=== PATIENT | female | born 1960 | race Two or more races ===

== ENCOUNTER 2020-04-13 13:56 | Emergency (ER) | payer MEDICARE ==
[2020-04-13] MEDS ORDERED: DIPH/PERTUSS(ACELL)/TETANUS VAC/PF 0.5 ML SYR (>=10YO) IM ONE (16:48)
--- NOTE | 2020-04-13 16:58 | ER Document Report ---
ED Medical Screen (RME) - General Chief Complaint: Laceration Stated Complaint: LEG PAIN Notes: 60-year-old female with past medical history of hypertension and myasthenia gravis presenting today with laceration to the anterior right brown. States she was walking down the last 3 steps at her daughter's house when she fell and the wooden steps cut her anterior brown. Patient states that her pain is tolerable right now. Does not desire additional pain medications. She states she takes methadone for her chronic low back pain. Shee believes that her last tetanus shot was approximately 6 years ago. Laceration is approximately 6 cm in diameter, is elliptical and does not approximate well. Patient has very thin frail skin. Does not take blood thinners. PE: Approximately 6 cm laceration along anterior right lower brown with underlying tissue exposed. Does not approximate well. Good capillary refill and good dorsalis pedis pulse. Good sensation to light touch. I have greeted and performed a rapid initial assessment of this patient. A comprehesive ED assessment and evaluation of this patient, analysis of test results and completion of the medical decision-making process will be conducted by additional ED providers. - Related Data Allergies/Adverse Reactions: Penicillins Allergy (Verified 04/13/20 16:18) Home Medications: Methadone, Sertraline Physical Exam - Vital signs Vitals: Temp Pulse Resp BP Pulse Ox 98.7 F 72 16 126/82 H 100 04/13/20 14:52 04/13/20 14:52 04/13/20 14:52 04/13/20 14:52 04/13/20 14:52 Course - Vital Signs Vital signs: Temp Pulse Resp BP Pulse Ox 98.7 F 72 16 126/82 H 100 04/13/20 14:52 04/13/20 14:52 04/13/20 14:52 04/13/20 14:52 04/13/20 14:52
--- NOTE | 2020-04-13 17:20 | RADIOLOGY REPORT (SQ) ---
EXAM DESCRIPTION: TIBIA FIBULA RIGHT IMAGES COMPLETED DATE/TIME: 04/13/2020 5:08 pm REASON FOR STUDY: laceration to anterior brown COMPARISON: None. NUMBER OF VIEWS: Two views. TECHNIQUE: Two radiographic images acquired of the right tibia and fibula to include the knee and an kle in at least one projection. LIMITATIONS: None. FINDINGS: MINERALIZATION: Normal. BONES: No acute fracture or dislocation. No worrisome bone lesions. No significant osteophytes. SOFT TISSUES: No obvious swelling or foreign body. OTHER: External bandaging is present over the lower right leg. IMPRESSION: No acute fracture or radiopaque foreign body. TECHNICAL DOCUMENTATION: JOB ID: [id number] 2010 [employer]- All Rights Reserved Reading location - IP/workstation name: [email or web address]
[2020-04-13] MEDS ORDERED: LIDOCAINE 1% INJ-PF (10 MG/ML) 30 ML SDV INJ ONE (18:35)
--- NOTE | 2020-04-13 20:00 | ER Document Report ---
ED Wound - General Chief Complaint: Laceration Stated Complaint: LEG PAIN Time Seen by Provider: 04/13/20 17:49 Notes: Patient is a 60-year-old female who presents emergency department with a laceration to her right anterior lower leg. Patient states that she was walking down steps at her daughter's house and she cut her brown on wooden steps. Patient has a history of chronic back pain, myasthenia gravis, and hypertension. Patient received her tetanus vaccine in triage. Patient denies any blood thinner use. She denies any diabetes. - Related Data Allergies/Adverse Reactions: Penicillins Allergy (Verified 04/13/20 16:18) Home Medications: Methadone, Sertraline Past Medical History - General Information source: Patient - Social History Smoking Status: Unknown if Ever Smoked Family History: Reviewed & Not Pertinent Review of Systems - Review of Systems Notes: REVIEW OF SYSTEMS: CONSTITUTIONAL : Denies recent illness. Denies recent unintentional weight loss. Denies fever, chills, or sweats. EENT: Denies eye, ear, throat, or mouth pain, discharge, or symptoms. Denies nasal or sinus congestion. CARDIOVASCULAR: Denies chest pain. RESPIRATORY: Denies shortness of breath, cough, congestion, difficulty breathing, or wheezing. GASTROINTESTINAL: Denies nausea, vomiting, and diarrhea. Denies abdominal pain. Denies constipation. GENITOURINARY: Denies difficulty urinating, burning, blood in urine, urgency or frequency. MUSCULOSKELETAL: Denies neck and back pain. See HPI. SKIN: See HPI. HEMATOLOGIC : Denies easy bruising or bleeding. LYMPHATIC: Denies swollen, painful, enlarged glands. NEUROLOGICAL: Denies no numbness or tingling denies weakness. Denies headache. Denies altered mental status. Denies alteration in speech. PSYCHIATRIC: Denies stress, anxiety, alteration in sleep patterns, or depression. All other systems reviewed and negative. Physical Exam - Vital signs Vitals: Temp Pulse Resp BP Pulse Ox 98.7 F 72 16 126/82 H 100 04/13/20 14:52 04/13/20 14:52 04/13/20 14:52 04/13/20 14:52 04/13/20 14:52 - Notes Notes: PHYSICAL EXAMINATION: GENERAL: Appears well, healthy, well-nourished, no acute distress. HEAD: Normocephalic, atraumatic. EYES: PERRL, conjunctiva normal, all extraocular movements intact, sclera nonicteric ENT: Moist mucous membranes. NECK: Supple, no noticeable swelling, redness, rash. Normal range of motion. LUNGS: Equal breath sounds bilaterally and clear to auscultation. No wheezes rales or rhonchi. CARDIOVASCULAR: S1-S2, regular rate, regular rhythm. Radial pulses 2+, normal. ABDOMEN: Normoactive bowel sounds. Soft, nontender, no guarding, no rebound tenderness, and no masses palpated. EXTREMITIES: Normal strength and range of motion, no pitting or edema. No cyanosis. NEUROLOGICAL: Moves all extremities upon command. Strength 5/5 in all extremities. PSYCH: Normal mood, normal affect. SKIN: Warm, dry. Laceration noted to right anterior brown. About 10 cm in length Course - Re-evaluation Re-evalutation: 04/13/20 Patient laceration was repaired here in the emergency department. I explored the wound and did not find any fragments of wood in her leg. X-ray was unremarkable. No bone involvement. See procedure note. Patient tolerated suturing well. No tendon involvement noted. Patient is able to flex and extend right foot at her normal capacity. Follow-up precautions were given. Verbal discharge instructions were given to the patient. They verbalized understanding. They are stable for discharge. - Vital Signs Vital signs: Temp Pulse Resp BP Pulse Ox 98.6 F 64 16 136/54 H 92 04/13/20 20:06 04/13/20 20:06 04/13/20 20:06 04/13/20 20:06 04/13/20 20:06 Procedures - Laceration/Wound Repair Right Anterior Leg Wound length (cm): 10 Wound's Depth, Shape: Flap Laceration pre-procedure: Sterile PPE donned, Sterile drapes applied, Shur-Clens applied Anesthetic type: 1% Lidocaine Volume Anesthetic (mLs): 30 Wound explored: Clean, No foreign body removed Irrigated w/ Saline (mLs): 200 Wound Debrided: Minimal Wound Repaired With: Sutures Suture Size/Type: 4:0, Nylon Number of Sutures: 21 Post-procedure wound care: Sterile dressing applied, Splint applied - orestes wrap Post-procedure NV exam normal: Yes Complications: No Adult Front & Back picture: 1 - laceration (crescent shaped) Discharge - Discharge Clinical Impression: Leg laceration Qualifiers: Encounter type: initial encounter Laterality: right Qualified Code(s): S81.811A - Laceration without foreign body, right lower leg, initial encounter Condition: Stable Disposition: HOME, SELF-CARE Instructions: Antibiotic Ointment Protection ([facility]), Laceration Care ([facility]), Soap Cleansing ([facility]), Tetanus Immunization Given ([facility]) Additional Instructions: Please return to your primary doctor, the ED, or an urgent care in 7 days for suture removal. Return immediately if you develop spreading redness around the wound, pus from the wound, worsening pain, or a fever of >100.4. Keep the area clean and dry. Wash gently with soap and water twice daily and cover with antibiotic ointment. Rest, elevate your leg, continue to wear the Orestes wrap, and apply ice, 20 minutes on, 20 minutes off.
[2020-04-13 20:07] VITALS: BP 136/54
== END 2020-04-13 20:20 | disposition home or self-care (01) ==
LOC: ER 13:56
DX: S81.811A Laceration without foreign body, right lower leg, initial encounter (principal); W10.9XXA Fall (on) (from) unspecified stairs and steps, initial encounter; Y92.009 Unspecified place in unspecified non-institutional (private) residence as the place of occurrence of the external cause; Z23 Encounter for immunization; I10 Essential (primary) hypertension; G70.00 Myasthenia gravis without (acute) exacerbation; M54.9 Dorsalgia, unspecified; G89.29 Other chronic pain; Z79.891 Long term (current) use of opiate analgesic; Z79.899 Other long term (current) drug therapy; Z88.0 Allergy status to penicillin
CPT/HCPCS: 99283; 90471; 73590; 90715; 12004; J3490